=== PATIENT | female | born 1980 | race Caucasian/White ===

== ENCOUNTER 2017-04-08 06:43 | Inpatient (IN) | payer BC ==
[~2017-04-08] VITALS: Ht 154.9 cm; Wt 59.4 kg
[2017-04-08] VITALS (28 sets, daily range): BP systolic 117–149; BP diastolic 66–95
[2017-04-08] MEDS ORDERED: PRENATAL TABLE1 EAC3 PO (07:51)
[2017-04-08 08:21] LABS: EOSINOPHIL (%) 1.3 % (0-5); EOSINOPHIL COUNT 0.1 K/uL (0-0.3); HEMATOCRIT 33.8 % (36.0-46.0); IMMATURE GRANULOCYTE (%) 0.6 % (0.0-0.7); LYMPHOCYTE COUNT 2.2 K/uL (1.0-2.8); MCH 26.7 PG (29.0-34.0); MCV 83.7 FL (83-99); MONOCYTE (%) 9.1 % (3-12); MONOCYTE COUNT 0.6 K/uL (0-0.8); NEUTROPHIL (%) 57.6 % (45-76); PLATELET COUNT 250 K/uL (156-360); RBC DIS.WIDTH-CV 14.6 % (11.8-14.6); RBC DIS.WIDTH-SD 44.1 % (39-53); RED BLOOD COUNT 4.04 M/uL (3.80-5.20); WHITE BLOOD COUNT 6.9 K/uL (4.1-10.2)
[2017-04-09] VITALS (14 sets, daily range): BP systolic 111–143; BP diastolic 57–83
[2017-04-09] MEDS ORDERED: ENDOCET 5-3251 EACH PO (11:38)
[2017-04-09] MEDS ORDERED: IBUPROFEN800 MG PO (11:38)
[2017-04-10 03:07] VITALS: BP 109/76
[2017-04-10 07:28] LABS: EOSINOPHIL (%) 0.9 % (0-5); EOSINOPHIL COUNT 0.1 K/uL (0-0.3); HEMATOCRIT 26.2 % (36.0-46.0); IMMATURE GRANULOCYTE (%) 0.4 % (0.0-0.7); IMMATURE GRANULOCYTE COUNT 0.1 K/uL; INSTRUMENT ABS NEUTROPHIL CT 13.1 K/uL; MCH 27.3 PG (29.0-34.0); MCHC 32.4 G/DL (30.0-36.0); MCV 84.2 FL (83-99); MONOCYTE (%) 5.5 % (3-12); MONOCYTE COUNT 0.9 K/uL (0-0.8); NEUTROPHIL (%) 80.6 % (45-76); NEUTROPHIL COUNT 13.1 K/uL (1.8-6.4); RBC DIS.WIDTH-CV 15.1 % (11.8-14.6); RBC DIS.WIDTH-SD 45.7 % (39-53); WHITE BLOOD COUNT 16.2 K/uL (4.1-10.2)
[2017-04-10 07:33] LABS: MEAN PLAT.VOLUME 11.2 uM^3 (9.5-12.4); PLAT.SUFFICIENCY ADEQUATE; RED BLOOD COUNT 3.11 M/uL (3.80-5.20)
[2017-04-10 07:34] LABS: PLATELET COUNT 156 K/uL (156-360)
[2017-04-10 07:36] VITALS: BP 122/77
[2017-04-10 10:43] VITALS: BP 101/60
[2017-04-10 14:54] VITALS: BP 131/83
[2017-04-10 19:31] VITALS: BP 126/75
[2017-04-11 03:13] VITALS: BP 112/71
[2017-04-11 07:13] VITALS: BP 128/83
[2017-04-11 11:41] VITALS: BP 131/93
[2017-04-11 14:55] VITALS: BP 143/80
[2017-04-11 23:07] VITALS: BP 125/79
[2017-04-12 08:24] VITALS: BP 158/91
[2017-04-12 08:56] VITALS: BP 130/90
[2017-04-12 15:13] VITALS: BP 151/90
== END 2017-04-12 18:25 | disposition home or self-care (01) | DRG 766 ==
LOC: LDRP-OP 06:43 → 2WEST 06:44 → LDRP-OP 10:05 → 2WEST 04-09 10:30 → LDRP-OP 04-29 14:42
PROVIDERS: Obstetrics & Gynecology
DX: O62.1 Secondary uterine inertia (principal); O48.0 Post-term pregnancy; O76 Abnormality in fetal heart rate and rhythm complicating labor and delivery; O75.89 Other specified complications of labor and delivery; O99.02 Anemia complicating childbirth; D50.9 Iron deficiency anemia, unspecified; Z3A.41 41 weeks gestation of pregnancy; Z37.0 Single live birth
CPT/HCPCS: 85025; 86850; 86900; 86901; C1755; G0378; J1100; J1580; J1885; J2175; J2210; J2274; J2405; J2590; J3010; J7050; J7120